=== PATIENT | female | born 1955 | race Caucasian/White ===

== ENCOUNTER 2019-06-23 13:57 | Emergency (ER) | payer BC ==
--- OUTSIDE RECORDS SUMMARY | 2019-06-23 14:24 | XMS REPORT | Continuity of Care Document ---
:1955 External Reference #:[id number] Author Name Moses Hines, OD Address [address] [place] [address] Care Team Providers Name Role Phone Sahara Davis MD Care Team Information Principal Electrical Engineer [phone] Problems Active Problems Provider Date Incipient senile cataract Kam Murillo M.D. Onset: 01/31/2016 Presbyopia Moses Burkett O.D. Onset: 12/06/2014 Hypertensive retinopathy Moses Burkett O.D. Onset: 12/06/2014 Vitreous degeneration Moses Burkett O.D. Onset: 12/06/2014 Tear film insufficiency Moses Burkett O.D. Onset: 12/06/2014 Social History Type Date Description Comments Sex Unknown ETOH Use Rarely consumes alcohol Tobacco Use Start: Unknown Patient has never smoked Smoking Status Reviewed: 06/01/19 Patient has never smoked Allergies, Adverse Reactions, Alerts Description No Known Drug Allergies Medications Active Medications SIG Qnty Indications Ordering Date Provider Fenofibrate Unknown 145mg Tablets Lovaza Unknown 1gm Capsules Vitamin D Unknown 2000Unit Capsules Calcium Magnesium 750 Unknown 300-300mg Tablets Coq10 take 1 capsule by Unknown 200mg Capsules mouth daily with a meal for nutritional support Acetyl L-Carnitine Unknown 250mg Capsules [id number] Ethyl take 2 capsules Unknown Esters twice a day 1gm Capsules Womens Multivitamin Unknown Tablets Immunizations Description No Information Available Vital Signs Date Vital Result Comment 06/02/2019 10:23am Intraocular Pressure Right Eye 16 mmHg Intraocular Pressure Left Eye 16 mmHg 06/18/2017 2:33pm Intraocular Pressure Right Eye 17 mmHg Intraocular Pressure Left Eye 17 mmHg Results Description No Information Available Procedures Date Code Description Status 06/02/2019 82908 Refraction Completed 06/02/2019 86533 Eye Exam Est Comprehensive Completed Medical Devices Description No Information Available Encounters Description No Information Available Assessments Date Code Description Provider 06/02/2019 H25.13 Age-related nuclear cataract, bilateral Moses Hines, OD 06/02/2019 H52.4 Presbyopia Moses Hines, OD 06/02/2019 H43.813 Vitreous degeneration, bilateral Moses Hines, OD 06/02/2019 H04.123 Dry eye syndrome of bilateral lacrimal glands Moses Hines, OD Plan of Treatment No Information Available Functional Status Description No Information Available Mental Status Description No Information Available Referrals Description No Information Available
[2019-06-23 14:27] LABS: ABS Lymphocytes 1.2 10^3/ul (1.0-4.8); ABS Monocytes 0.4 10^3/ul (0-0.8); ABS Neutrophils 5.6 10^3/ul (1.5-7.7); Eosinophil % 0.6 %; Hematocrit 39 % (35-47); Hemoglobin 14.1 g/dL (12.0-16.0); Lymphocyte % 16.4 %; Mean Corpuscular HGB Conc 36 g/dL (31-36); Mean Corpuscular Hemoglobin 33 pg (27-31); Mean Corpuscular Volume 90 fL (80-97); Mean Platelet Volume 8.1 fL (7.4-10.4); Platelet Count 312 10^3/uL (150-450); Red Blood Count 4.33 10^6 /uL (3.70-4.87); Red Cell Distribution Width 12 % (10-15); White Blood Count 7.2 10^3/uL (3.5-10.8)
[2019-06-23 14:40] LABS: INR 1.05 (0.82-1.09)
[2019-06-23 14:44] LABS: Troponin I 0.01 ng/mL (<0.03)
[2019-06-23 14:59] LABS: Albumin 4.7 g/dL (3.2-5.2); Albumin/Globulin Ratio 1.8 (1-3); BUN/Creatinine Ratio 25.7 (8-20); Calcium 9.9 mg/dL (8.6-10.3); EGFR African American 95.6 (>60); Globulin 2.6 g/dL (2-4); Potassium 3.8 mmol/L (3.5-5.0); Total Bilirubin 0.4 mg/dL (0.2-1.0); Total Protein 7.3 g/dL (6.4-8.9)
--- NOTE | 2019-06-23 18:06 | ED ---
HPI Chest Pain - HPI Summary HPI Summary: This patient is a 63 year old F with a history of RBBB and high triglycerides presenting to ED with a chief complaint of constant L-sided chest discomfort since 06/19/19. On 06/19/19, patient reports feeling anxious with chest pain as she was worried about her son driving in the winter storm. On 06/20/19, the patient was shoveling snow and began to notice more of her chest pain. Since then, the patient has had constant chest pain. The pain is described as throbbing pressure. She has been exercising as normal since then. Patient took an Aspirin yesterday. The patient rates the pain 4/10 in severity. Symptoms aggravated by nothing. Symptoms alleviated by nothing. Patient denies fever, shortness of breath, dizziness, nausea, skin diaphoresis. - History of Current Complaint Chief Complaint: EDChestPainROMI Time Seen by Provider: 06/23/19 17:01 Hx Obtained From: Patient Onset/Duration: Started Days Ago - 06/19/19, Still Present Timing: Constant, Lasting Days - Since 05/20/19 Initial Severity: Moderate Current Severity: Moderate Pain Intensity: 4 Pain Scale Used: 0-10 Numeric Chest Pain Location: Left Anterior Character: Other: - Throbbing pressure Aggravating Factor(s): Nothing Alleviating Factor(s): Nothing Associated Signs and Symptoms: Positive: Negative - fever, shortness of breath, dizziness, nausea, skin diaphoresis, Chest Pain - Allergy/Home Medications Allergies/Adverse Reactions: Allergies Allergy/AdvReac Type Severity Reaction Status Date / Time prednisone Allergy Altered Verified 06/23/19 16:57 Mental Status Home Medications: Home Medications raNITIdine HCl [Ranitidine HCl] 150 mg PO DAILY 06/23/19 [History Confirmed 12/05] PMH/Surg Hx/FS Hx/Imm Hx Endocrine/Hematology History: Denies: Hx Anticoagulant Therapy, Hx Diabetes Cardiovascular History: Denies: Hx Angina, Hx Coronary Artery Disease, Hx Hypercholesterolemia, Hx Hypertension, Hx Myocardial Infarction, Hx Pacemaker/ICD, Hx Valvular Heart Disease Respiratory History: Reports: Hx Asthma Denies: Hx Chronic Obstructive Pulmonary Disease (COPD) Musculoskeletal History: Denies: Hx Rheumatoid Arthritis, Hx Osteoporosis - OSTEOPENIA, Hx Scoliosis Sensory History: Reports: Hx Contacts or Glasses Denies: Hx Hearing Aid Opthamlomology History: Reports: Hx Contacts or Glasses Neurological History: Reports: Other Neuro Impairments/Disorders - LYME DISEASE Denies: Hx Headaches Psychiatric History: Reports: Hx Anxiety, Hx Depression Denies: Hx Panic Disorder - Cancer History Cancer Type, Location and Year: uterus Hx Chemotherapy: No Hx Radiation Therapy: No - Surgical History Surgery Procedure, Year, and Place: hysterectomy 2010 - Immunization History Immunizations Up to Date: Yes Infectious Disease History: No Infectious Disease History: Denies: Hx Clostridium Difficile, Hx Shingles, Hx Tuberculosis, Hx Known/ Suspected VRE, Hx Known/Suspected VRSA, History Other Infectious Disease, Traveled Outside the [place] in Last 30 Days - Family History Known Family History: Positive: Cardiac Disease - [place], Hypertension, Other - PE - Social History Alcohol Use: None Hx Substance Use: No Substance Use Type: Reports: None Hx Tobacco Use: No Smoking Status (MU): Never Smoked Tobacco Review of Systems Negative: Fever, Skin Diaphoresis Positive: Chest Pain Negative: Shortness Of Breath Negative: Nausea Neurological: Negative - Dizziness All Other Systems Reviewed And Are Negative: Yes Physical Exam - Summary Physical Exam Summary: Constitutional: Well-developed, Well-nourished, Alert. (-) Distressed Skin: Warm, Dry HENT: Normocephalic; Atraumatic Eyes: Conjunctiva normal Neck: Musculoskeletal ROM normal neck. (-) JVD, (-) Stridor, (-) Tracheal deviation Cardio: Rhythm regular, rate normal, Heart sounds normal; Intact distal pulses; The pedal pulses are 2+ and symmetric. Radial pulses are 2+ and symmetric. Pulmonary/Chest wall: Effort normal. (-) Respiratory distress, (-) Wheezes, (-) Rales. Some anterior chest wall reproducible tenderness. It spans from the anterior axillary line along the T2 to T4 distribution of the chest wall to the sternum. Female towel folder, Abena, hospital aide, present during chest wall exam. Abd: Soft, (-) tenderness, (-) Distension, (-) Guarding, (-) Rebound Musculoskeletal: (-) Edema Neuro: Alert, Oriented x3 Psych: Mood and affect Normal Triage Information Reviewed: Yes Vital Signs On Initial Exam: Initial Vitals Temp Pulse Resp BP Pulse Ox 96.9 F 69 16 153/75 100 06/23/19 14:06 06/23/19 14:06 06/23/19 14:06 06/23/19 14:06 06/23/19 14:06 Vital Signs Reviewed: Yes Procedures - Sedation Patient Received Moderate/Deep Sedation with Procedure: No Diagnostics - Vital Signs Vital Signs Temp Pulse Resp BP Pulse Ox 06/23/19 17:25 13 158/81 06/23/19 17:00 67 16 98 06/23/19 16:55 73 9 145/89 99 06/23/19 16:50 68 97 06/23/19 14:06 96.9 F 69 16 153/75 100 - Laboratory Lab Results: Lab Results 06/23/19 06/23/19 06/23/19 Range/Units 14:18 14:18 14:18 WBC 7.2 (3.5-10.8) 10^3/uL RBC 4.33 (3.70-4.87) 10^6 /uL Hgb 14.1 (12.0-16.0) g/dL Hct 39 (35-47) % MCV 90 (80-97) fL MCH 33 H (27-31) pg MCHC 36 (31-36) g/dL RDW 12 (10-15) % Plt Count 312 (150-450) 10^3/uL MPV 8.1 (7.4-10.4) fL Neut % (Auto) 77.3 % Lymph % (Auto) 16.4 % [place] % (Auto) 5.4 % Eos % (Auto) 0.6 % Baso % (Auto) 0.3 % Absolute Neuts (auto) 5.6 (1.5-7.7) 10^3/ul Absolute Lymphs (auto) 1.2 (1.0-4.8) 10^3/ul Absolute Monos (auto) 0.4 (0-0.8) 10^3/ul Absolute Eos (auto) 0.0 (0-0.6) 10^3/ul Absolute Basos (auto) 0.0 (0-0.2) 10^3/ul Absolute Nucleated RBC 0.0 10^3/ul Nucleated RBC % 0.0 INR (Anticoag Therapy) 1.05 (0.82-1.09) Sodium 143 (135-145) mmol/L Potassium 3.8 (3.5-5.0) mmol/L Chloride 105 (101-111) mmol/L Carbon Dioxide 30 (22-32) mmol/L Anion Gap 8 (2-11) mmol/L BUN 19 (6-24) mg/dL Creatinine 0.74 (0.51-0.95) mg/dL Est GFR ( Amer) 95.6 (>60) Est GFR (Non-Af Amer) 79.0 (>60) BUN/Creatinine Ratio 25.7 H (8-20) Glucose 132 H (70-100) mg/dL Calcium 9.9 (8.6-10.3) mg/dL Total Bilirubin 0.40 (0.2-1.0) mg/dL AST 22 (13-39) U/L ALT 21 (7-52) U/L Alkaline Phosphatase 64 (34-104) U/L Troponin I 0.01 (<0.03) ng/mL Total Protein 7.3 (6.4-8.9) g/dL Albumin 4.7 (3.2-5.2) g/dL Globulin 2.6 (2-4) g/dL Albumin/Globulin Ratio 1.8 (1-3) 06/23/19 Range/Units 17:14 WBC (3.5-10.8) 10^3/uL RBC (3.70-4.87) 10^6 /uL Hgb (12.0-16.0) g/dL Hct (35-47) % MCV (80-97) fL MCH (27-31) pg MCHC (31-36) g/dL RDW (10-15) % Plt Count (150-450) 10^3/uL MPV (7.4-10.4) fL Neut % (Auto) % Lymph % (Auto) % [place] % (Auto) % Eos % (Auto) % Baso % (Auto) % Absolute Neuts (auto) (1.5-7.7) 10^3/ul Absolute Lymphs (auto) (1.0-4.8) 10^3/ul Absolute Monos (auto) (0-0.8) 10^3/ul Absolute Eos (auto) (0-0.6) 10^3/ul Absolute Basos (auto) (0-0.2) 10^3/ul Absolute Nucleated RBC 10^3/ul Nucleated RBC % INR (Anticoag Therapy) (0.82-1.09) Sodium (135-145) mmol/L Potassium (3.5-5.0) mmol/L Chloride (101-111) mmol/L Carbon Dioxide (22-32) mmol/L Anion Gap (2-11) mmol/L BUN (6-24) mg/dL Creatinine (0.51-0.95) mg/dL Est GFR ( Amer) (>60) Est GFR (Non-Af Amer) (>60) BUN/Creatinine Ratio (8-20) Glucose (70-100) mg/dL Calcium (8.6-10.3) mg/dL Total Bilirubin (0.2-1.0) mg/dL AST (13-39) U/L ALT (7-52) U/L Alkaline Phosphatase (34-104) U/L Troponin I 0.01 (<0.03) ng/mL Total Protein (6.4-8.9) g/dL Albumin (3.2-5.2) g/dL Globulin (2-4) g/dL Albumin/Globulin Ratio (1-3) Result Diagrams: 06/23/19 14:18 06/23/19 14:18 Lab Statement: Any lab studies that have been ordered have been reviewed, and results considered in the medical decision making process. - Radiology CXR Radiology Interpretation Completed By: Radiologist Summary of Radiographic Findings: #. Elevated lung volumes suggest potential obstructive lung disease. #. No evidence for acute intrathoracic disease. Dr. Valdes has reviewed this radiology report. - EKG 1359 Cardiac Rate: NL - 71 BPM EKG Rhythm: Sinus Rhythm Summary of EKG Findings: An EKG at 1359 revealed NSR at 71 BPM, RBBB, no STEMI. Dr. Valdes has reviewed and interpreted this EKG. Chest Pain Course/Dx - Course Course Of Treatment: This patient is a 63 year old F with a history of RBBB and high triglycerides presenting to ED with a chief complaint of constant L-sided chest discomfort since 05/21/19 after shoveling snow. An EKG at 1359 revealed NSR at 71 BPM, RBBB, no STEMI. Blood work revealed MCH 33, BUN/creatinine ratio 25.7, glucose 132. First troponin 0.01. Second troponin 0.01. CXR revealed #. Elevated lung volumes suggest potential obstructive lung disease. #. No evidence for acute intrathoracic disease. Discussed results with patient. Patient will be discharged home with dx of chest wall pain. Patient understands and agrees with this plan. - Diagnoses Provider Diagnoses: Chest wall pain Discharge ED - Sign-Out/Discharge Documenting (check all that apply): Patient Departure - Discharge - Discharge Plan Condition: Stable Disposition: HOME Patient Education Materials: Transthoracic Echocardiogram (ED), Chest Wall Pain (ED), Cardiac Stress Test (DC) Referrals: Sahara Davis MD [Primary Care Provider] - Additional Instructions: Please follow-up with your primary care physician in 1-3 days for a cardiac echo and a stress test. RETURN TO THE ED IF YOU HAVE WORSENING OR CHANGING SYMPTOMS. - Billing Disposition and Condition Condition: STABLE Disposition: Home - Attestation Statements Document Initiated by Elia: Yes Documenting Scribe: Juanjo Multani Provider For Whom Elia is Documenting (Include Credential): Edwar Valdes MD Scribe Attestation: Juanjo Rogers, scribed for Edwar Valdes MD on 06/23/19 at 1915. Scribe Documentation Reviewed: Yes Provider Attestation: The documentation as recorded by the Juanjo hernandez accurately reflects the service I personally performed and the decisions made by me, Edwar Valdes MD Status of Scribe Document: Viewed
[2019-06-23 18:36] VITALS: BP 152/73
== END 2019-06-23 18:45 | disposition home or self-care (01) ==
LOC: ED 13:57
DX: R07.89 Other chest pain (principal); J45.909 Unspecified asthma, uncomplicated; F41.9 Anxiety disorder, unspecified; F32.9 Major depressive disorder, single episode, unspecified; Z90.710 Acquired absence of both cervix and uterus; Z88.8 Allergy status to other drugs, medicaments and biological substances
CPT/HCPCS: 36415; 71046; 80053; 84484; 85025; 85610; 93005; 99283